=== PATIENT | male | born 1995 | race Caucasian/White ===

== ENCOUNTER 2016-11-10 21:53 | Emergency (ER) | payer OTHER ==
[~2016-11-10] VITALS: Ht 180.3 cm; Wt 72.7 kg
[2016-11-10 21:55] VITALS: BP 120/70; TEMP 98.8
[2016-11-10] MEDS ORDERED: NOVOLOG FLEX100 U/ML SQ (22:00)
[2016-11-10] MEDS ORDERED: LEVEMIR FLEX100 U/ML SQ (22:01)
[2016-11-10 22:53] VITALS: PULSE 98
== END 2016-11-10 22:55 | disposition home or self-care (01) ==
LOC: COL.ER 21:53
DX: E10.649 Type 1 diabetes mellitus with hypoglycemia without coma (principal); Z98.890 Other specified postprocedural states